=== PATIENT | female | born 1975 | race African-American/Black ===

== ENCOUNTER 2024-09-25 19:17 | Emergency (ER) | payer MEDICAID ==
[~2024-09-25] VITALS: Ht 170.2 cm; Wt 112.0 kg
[2024-09-25 19:24] VITALS: O2SAT 98
[2024-09-25 19:28] VITALS: BP 160/92; PULSE 72; RESP 15; TEMP 36.8; O2SAT 99
== END 2024-09-25 21:34 | disposition left against medical advice (07) ==
LOC: ER 19:17
DX: S10.85XA Superficial foreign body of other specified part of neck, initial encounter (principal); X58.XXXA Exposure to other specified factors, initial encounter; Y93.89 Activity, other specified; Y92.89 Other specified places as the place of occurrence of the external cause; Y99.8 Other external cause status
CPT/HCPCS: 99281